=== PATIENT | female | born 1990 | race Caucasian/White ===

== ENCOUNTER 2017-03-22 15:32 | Emergency (ER) | payer OTHER ==
[~2017-03-22] VITALS: Ht 152.4 cm; Wt 52.0 kg
[2017-03-22 15:33] VITALS: BP 122/56; PULSE 94; RESP 18; TEMP 98.5; O2SAT 100
[2017-03-22] MEDS ORDERED: FLUT1SPR5 EACH NARE (17:54)
--- NOTE | 2017-03-22 17:56 | PD ---
HPI . Congestion Chief Complaint: Cold / Flu Symptoms Time Seen by Provider: 17:34 Travel History International Travel<30 days: No Contact w/Intl Traveler<30days: No Traveled to known affect area: No History of Present Illness HPI 27-year-old female presents emergency department for evaluation of nasal congestion, bilateral ear pressure and cough that started last Sunday. Patient states she had a fever on Sunday but is been afebrile since. Patient states she intermittently coughs up clear phlegm. Patient is not a smoker. Patient denies any major medical history. Patient doesn't take any daily medication. Patient denies any chest pain, abdominal pain, nausea, vomiting, diarrhea. PFSH Past Medical History Medical History: Denies Significant Hx Tetanus Vaccination: < 5 Years Influenza Vaccination: No ?: Not Past Surgical History Surgical History: No Previous Surgery Social History Alcohol Use: No Tobacco Use: No Substance Use: No Allergies-Medications (Allergen,Severity, Reaction): Coded Allergies: No Known Allergies (Unverified , 03/22/17) Reported Meds & Prescriptions Reported Meds & Active Scripts Active Flonase Nasal [place] (Fluticasone Nasal [place]) 50 Mcg/Act [place] 50 Mcg EACH NARE BID Review of Systems Except as stated in HPI: all other systems reviewed are Neg Physical Exam Narrative GENERAL: Well-nourished, well-developed 27 year female patient in no acute distress. Nontoxic appearing. SKIN: Focused skin assessment warm/dry. HEAD: Normocephalic. Atraumatic. EYES: No scleral icterus. No injection or drainage. ENT: Mucosa pink and moist. No erythema or exudates. No uvular edema. No uvular , palatal, or tonsillar deviation. Airway patent. Nasal turbinates appear mildly hypertrophic without nasal blood, purulent drainage or septal hematoma. EARS: Bilateral pinnae and external canals appear within normal limits. Bilateral tympanic membranes without erythema, dullness or perforation. THROAT: No pharyngeal injection, exudates, or tonsillar hypertrophy. Airway is patent. NECK: Supple, trachea midline. No JVD or lymphadenopathy. CARDIOVASCULAR: Regular rate and rhythm without murmurs, gallops, or rubs. RESPIRATORY: Breath sounds equal bilaterally. No accessory muscle use. GASTROINTESTINAL: Abdomen soft, non-tender, nondistended. MUSCULOSKELETAL: No cyanosis, or edema. Data Data Last Documented VS Vital Signs Date Time Temp Pulse Resp B/P (MAP) Pulse Ox O2 Delivery O2 Flow Rate FiO2 03/22/17 18:06 03/22/17 15:33 98.5 94 18 100 Room Air Orders Orders Ed Discharge Order (03/22/17 17:56) MDM Medical Decision Making Medical Screen Exam Complete: Yes Emergency Medical Condition: Yes Differential Diagnosis Differential diagnoses include but not limited to URI, pharyngitis, congestion, allergies, sinusitis Narrative Course 27-year-old female presents emergency department for evaluation of nasal congestion, ear pressure and cough since last Sunday. Patient denies any fevers since Sunday. Patient is well-appearing and jovial. Patient is here with her young daughter. Patient states she left work early and needs a work note to go back to work. Patient discharged home with prescription for Flonase , instructions to take Claritin in the morning and Benadryl at night and a work note to go back to work. Diagnosis Primary Impression: Nasal congestion Additional Impression: Ear congestion Qualified Codes: H93.8X3 - Other specified disorders of ear, bilateral Referrals: Primary Care Physician Patient Instructions: Earache (ED), General Instructions, How to Use Nasal [place] (DC) Departure Forms: Tests/Procedures, Work Release Enter return to work date: Mar 23, 2017 Additional Instructions: Please return to emergency department if your symptoms return or worsen. Follow up with your primary care provider. Flonase will help decrease nasal congestion. Claritin in the morning. Benadryl at night will help. Ibuprofen as needed for pain or fevers. Supportive care, stay hydrated, get enough rest, diet as tolerated. Med/Other Pt SpecificInfo: Prescription(s) given Scripts Fluticasone Nasal [place] (Flonase Nasal [place]) 50 Mcg/Act [place] 50 MCG EACH NARE BID for Allergies, #1 BOTTLE 0 Refills Prov: Venita Bravo Merari BENSON 03/22/17 Disposition: 01 DISCHARGE HOME Condition: Stable Lawrence,Venita BENSON Mar 22, 2017 17:56
== END 2017-03-22 18:06 | disposition home or self-care (01) ==
LOC: NEPK 15:32
DX: R09.81 Nasal congestion (principal); H83.8X3 Other specified diseases of inner ear, bilateral; R05 Cough
CPT/HCPCS: 99283

== ENCOUNTER 2017-08-06 13:40 | Emergency (ER) | payer BC, OTHER ==
[~2017-08-06] VITALS: Ht 152.4 cm; Wt 53.6 kg
[~2017-08-06 13:40] MED LIST: FLUT1SPR5 EACH NARE
[2017-08-06 13:51] VITALS: BP 111/49; PULSE 83; RESP 20; TEMP 98.1; O2SAT 99
--- NOTE | 2017-08-06 15:15 | PD ---
HPI Chief Complaint: GI Complaint Time Seen by Provider: 15:14 Travel History International Travel<30 days: No Contact w/Intl Traveler<30days: No Traveled to known affect area: No History of Present Illness HPI 27-year-old female presents emergency department with nausea and vomiting for the past 3 days. She states throat is sore secondary to vomiting. Patient states 2 days of fever 2 days ago, and then nausea and vomiting the last few days. She denies fever in the last 2 days, as well as no diarrhea or urinary symptoms. She has no chest congestion, chest pain, or cough. She denies upper respiratory symptoms. She has no known drug allergies. PFSH Past Medical History ?: Unknown Social History Alcohol Use: No Tobacco Use: No Substance Use: No Allergies-Medications (Allergen,Severity, Reaction): Coded Allergies: No Known Allergies (Unverified , 03/22/17) Reported Meds & Prescriptions Reported Meds & Active Scripts Active Flonase Nasal [place] (Fluticasone Nasal [place]) 50 Mcg/Act [place] 50 Mcg EACH NARE BID Review of Systems Except as stated in HPI: all other systems reviewed are Neg General / Constitutional: Positive: Fever, No: Chills Eyes: No: Diploplia, Visual changes HENT: Positive: Sore Throat, No: Headaches, Vertigo, Lightheadedness, Rhinitis , Rhinorrhea, Congestion, Nosebleed, Neck Stiffness, Neck Pain, Dental Difficulties, Earache Cardiovascular: No: Chest Pain or Discomfort Respiratory: No: Cough, Shortness of Breath, Wheezing Gastrointestinal: Positive: Nausea, Vomiting, No: Diarrhea, Abdominal Pain, Hematemesis, Hematochezia, Constipation, Indigestion, Dysphagia, Loss of Appetite Genitourinary: No: Urgency, Frequency, Dysuria, Discharge Musculoskeletal: No: Pain Skin: No Rash Neurologic: No: Weakness Psychiatric: No: Depression Endocrine: No: Polydipsia Hematologic/Lymphatic: No: Easy Bruising Physical Exam Narrative GENERAL: Patient appears in no acute distress. SKIN: Warm and dry. Normal color. Normal turgor. HEAD: Atraumatic. Normocephalic. EYES: Pupils equal and round. No scleral icterus. No injection or drainage. ENT: No nasal bleeding or discharge. Mucous membranes pink and moist. TMs are clear bilaterally. No sinus tenderness or postnasal drip noted. Posterior pharynx is normal color, without swelling or erythema. Airway is patent NECK: Trachea midline. Supple and nontender CARDIOVASCULAR: Regular rate and rhythm. No murmurs gallops or rubs RESPIRATORY: No accessory muscle use. Clear to auscultation. Breath sounds equal bilaterally. GASTROINTESTINAL: Abdomen soft, mild epigastric discomfort, nondistended. No CVA tenderness. Hepatic and splenic margins not palpable. MUSCULOSKELETAL: Extremities without clubbing, cyanosis, or edema. No obvious deformities. NEUROLOGICAL: Awake and alert. No obvious cranial nerve deficits. Motor grossly within normal limits. Five out of 5 muscle strength in the arms and legs. Normal speech. PSYCHIATRIC: Appropriate mood and affect; insight and judgment normal. Data Data Last Documented VS Vital Signs Date Time Temp Pulse Resp B/P (MAP) Pulse Ox O2 Delivery O2 Flow Rate FiO2 08/06/17 13:51 98.1 83 20 111/49 (69) 99 Orders Orders Complete Blood Count With Diff (08/06/17 13:52) Comprehensive Metabolic Panel (08/06/17 13:52) Lipase (08/06/17 13:52) Urinalysis - C+S If Indicated (08/06/17 13:52) Ed Urine Pregnancytest Poc (08/06/17 13:52) Ondansetron Odt (Zofran Odt) (08/06/17 15:30) Al-Mag Hy-Si 40-40-4 Mg/Ml Liq (Mag-Al P (08/06/17 15:30) Lidocaine 2% Viscous (Xylocaine 2% Visco (08/06/17 15:30) Labs Laboratory Tests Test 08/06/17 14:45 White Blood Count 4.9 TH/MM3 Red Blood Count 4.59 MIL/MM3 Hemoglobin 10.5 GM/DL Hematocrit 33.2 % Mean Corpuscular Volume 72.2 FL Mean Corpuscular Hemoglobin 22.8 PG Mean Corpuscular Hemoglobin Concent 31.6 % Red Cell Distribution Width 16.7 % Platelet Count 226 TH/MM3 Mean Platelet Volume 9.5 FL Neutrophils (%) (Auto) 54.1 % Lymphocytes (%) (Auto) 36.0 % Monocytes (%) (Auto) 8.0 % Eosinophils (%) (Auto) 1.6 % Basophils (%) (Auto) 0.3 % Neutrophils # (Auto) 2.6 TH/MM3 Lymphocytes # (Auto) 1.8 TH/MM3 Monocytes # (Auto) 0.4 TH/MM3 Eosinophils # (Auto) 0.1 TH/MM3 Basophils # (Auto) 0.0 TH/MM3 CBC Comment DIFF FINAL Differential Comment Urine Color YELLOW Urine Turbidity HAZY Urine pH 6.5 Urine Specific [place] 1.020 Urine Protein TRACE mg/dL Urine Glucose (UA) NEG mg/dL Urine Ketones NEG mg/dL Urine Occult Blood NEG Urine Nitrite NEG Urine Bilirubin NEG Urine Urobilinogen LESS THAN 2.0 MG/DL Urine Leukocyte Esterase SMALL Urine RBC 2 /hpf Urine WBC 5 /hpf Urine Squamous Epithelial Cells 31 /hpf Urine Amorphous Sediment RARE Urine Mucus MANY /lpf Microscopic Urinalysis Comment CULT NOT INDICATED Blood Urea Nitrogen 6 MG/DL Creatinine 0.74 MG/DL Random Glucose 100 MG/DL Albumin 3.5 GM/DL Calcium Level 8.9 MG/DL Aspartate Amino Transf (AST/SGOT) 15 U/L Sodium Level 141 MEQ/L Potassium Level 3.6 MEQ/L Chloride Level 106 MEQ/L Carbon Dioxide Level 29.0 MEQ/L Anion Gap 6 MEQ/L Estimat Glomerular Filtration Rate 95 ML/MIN Lipase 84 U/L [facility] Medical Decision Making Medical Screen Exam Complete: Yes Emergency Medical Condition: Yes Differential Diagnosis Epigastric pain. Nausea vomiting. Gastroenteritis. UTI. Narrative Course Urine is negative in triage Labs ordered including CBC, CMP, and lipase. Urinalysis is also sent to the lab. Patient is given oral Zofran 4 mg ODT Patient also given GI cocktail p.o. CBC is unremarkable except for some microcytic anemia with a hemoglobin of 10.5. Urinalysis is unremarkable CMP showed no significant findings. Patient is given a prescription for Zofran 4 mg every 6 hours as needed #12 Patient is given a prescription for ranitidine 150 mg twice daily for 2 weeks. Patient should rest, push fluids, eat bland food, and follow-up if symptoms do not improve or worsen. Work note for today is given. Diagnosis Primary Impression: Gastroenteritis Referrals: Primary Care Physician Patient Instructions: Acute Nausea and Vomiting (ED), General Instructions Departure Forms: Work Release Enter return to work date: Aug 07, 2017 Additional Instructions: CBC is unremarkable except for some microcytic anemia with a hemoglobin of 10.5. Urinalysis is unremarkable CMP showed no significant findings. Patient is given a prescription for Zofran 4 mg every 6 hours as needed #12 Patient is given a prescription for ranitidine 150 mg twice daily for 2 weeks. Patient should rest, push fluids, eat bland food, and follow-up if symptoms do not improve or worsen. Work note for today is given. Med/Other Pt SpecificInfo: Prescription(s) given Disposition: 01 DISCHARGE HOME Condition: Stable Ferdinand Wooten Aug 06, 2017 15:15
[2017-08-06 15:25] LABS: AUTOMATED NEUTROPHIL # 2.6 TH/MM3 (1.8-7.7); BASOPHIL % 0.3 % (0.0-2.0); EOSINOPHIL # 0.1 TH/MM3 (0-0.4); EOSINOPHIL % 1.6 % (0.0-4.0); HEMATOCRIT 33.2 % (35.0-46.0); HEMOGLOBIN 10.5 GM/DL (11.6-15.3); LYMPHOCYTE # 1.8 TH/MM3 (1.0-4.8); MEAN CELL VOLUME 72.2 FL (80.0-100.0); MEAN CORPUSCULAR HEMOGLOBIN 22.8 PG (27.0-34.0); MEAN CORPUSCULAR HGB CONC 31.6 % (32.0-36.0); MEAN PLATELET VOLUME 9.5 FL (7.0-11.0); MONOCYTE # 0.4 TH/MM3 (0-0.9); NEUT % 54.1 % (16.0-70.0); PLATELET COUNT 226 TH/MM3 (150-450); RED BLOOD COUNT 4.59 MIL/MM3 (4.00-5.30); RED CELL DISTRIBUTION WIDTH 16.7 % (11.6-17.2); WHITE BLOOD COUNT 4.9 TH/MM3 (4.0-11.0)
[2017-08-06 15:26] LABS: AMORPHOUS SEDIMENT, URINE RARE; BILIRUBIN, URINE NEG (NEG); BLOOD, URINE NEG (NEG); GLUCOSE,URINE NEG (NEG); KETONE, URINE NEG (NEG); MUCUS URINE MANY /lpf (OCC); NITRITE,URINE NEG (NEG); PH, URINE 6.5 (5.0-8.5); SQUAMOUS EPITHELIAL CELL URINE 31 /hpf (0-5); URINE COLOR YELLOW (YELLW/STRAW); URINE LEUKOCYTE ESTERASE SMALL (NEG)
[2017-08-06] MEDS ORDERED: LIDOCAINE VISCOUS 2% SOLN 15 ML UDC PO ONE (15:30)
[2017-08-06] MEDS ORDERED: ONDANSETRON ODT 4 MG TAB PO ONE (15:30)
[2017-08-06] MEDS ORDERED: ALUMINUM/MAGNESIUM/SIMETH 30 ML CUP PO ONE (15:30)
[2017-08-06 15:47] LABS: ALBUMIN 3.5 GM/DL (3.4-5.0); AST (GOT) 15 U/L (15-37); BLOOD UREA NITROGEN 6 MG/DL (7-18); CALCIUM 8.9 MG/DL (8.5-10.1); CHLORIDE 106 MEQ/L (98-107); CREATININE 0.74 MG/DL (0.50-1.00); GLOMERULAR FILTRATION RATE 95 ML/MIN (>89); GLUCOSE,RANDOM 100 MG/DL (74-106); SODIUM (NA) 141 MEQ/L (136-145)
[2017-08-06 15:53] LABS: ALKALINE PHOSPHATASE 56 U/L (45-117); ALT (GPT) 13 U/L (10-53); TOTAL BILIRUBIN ADULT 0.2 MG/DL (0.2-1.0); TOTAL PROTEIN 7.9 GM/DL (6.4-8.2)
[2017-08-06] MEDS ORDERED: ZOFR4TAB PO (15:55)
[2017-08-06] MEDS ORDERED: RANI150T PO (15:55)
== END 2017-08-06 16:37 | disposition home or self-care (01) ==
LOC: NEPD 13:40
DX: K52.9 Noninfective gastroenteritis and colitis, unspecified (principal)
CPT/HCPCS: 80053; 81001; 83690; 84703; 85025; 99283